=== PATIENT | male | born 1970 | race Caucasian/White ===

== ENCOUNTER 2023-06-04 12:19 | Emergency (ER) | payer BC, OTHER ==
[~2023-06-04] VITALS: Ht 172.7 cm; Wt 100.0 kg
[~2023-06-04 12:19] MED LIST: AVAP75TA7 PO; CELE1CAP4 PO; CLOM50TA9 PO; FLOM0.4C39 PO; LYRI75CA PO; PERC5TAB12 PO; TYLE325T5 PO; XARE10TA PO
[2023-06-04] MEDS ORDERED: AMOX500T2 (12:48)
[2023-06-04] MEDS ORDERED: FINA5TAB2 (12:48)
[2023-06-04] MEDS ORDERED: CONT1TAB (12:48)
[2023-06-04] MEDS ORDERED: ATOR1TAB21 (12:48)
[2023-06-04] MEDS ORDERED: LOSA100T46 (12:48)
[2023-06-04] MEDS ORDERED: OXYB10TA23 (12:48)
[2023-06-04] MEDS ORDERED: LIDOCAINE 2% 5ML JELLY UROJET TOP ONE (15:55)
[2023-06-04 16:53] VITALS: BP 156/98; TEMP 98.2; O2SAT 100
== END 2023-06-04 16:57 | disposition home or self-care (01) ==
LOC: M ED 12:19
DX: N39.0 Urinary tract infection, site not specified (principal); T83.84XA Pain due to genitourinary prosthetic devices, implants and grafts, initial encounter; Z91.048 Other nonmedicinal substance allergy status; I10 Essential (primary) hypertension; E78.00 Pure hypercholesterolemia, unspecified; Z79.899 Other long term (current) drug therapy